=== PATIENT | female | born 1990 | race Caucasian/White ===

== ENCOUNTER 2016-12-03 13:01 | Emergency (ER) | payer MEDICAID ==
[~2016-12-03] VITALS: Ht 167.6 cm; Wt 68.6 kg
[~2016-12-03 13:01] MED LIST: PREN1TAB56 PO
[2016-12-03 14:17] LABS: ASPARTATE AMINO TRANSFERASE 12 U/L (15-37); BLOOD UREA NITROGEN 13 mg/dL (7-18)
[2016-12-03 15:19] LABS: HCG UR OBC PASS
[2016-12-03 15:23] VITALS: BP 118/63
== END 2016-12-03 16:00 | disposition home or self-care (01) ==
LOC: ED 15:54
DX: R11.2 Nausea with vomiting, unspecified (principal); R19.7 Diarrhea, unspecified; T36.1X1A Poisoning by cephalosporins and other beta-lactam antibiotics, accidental (unintentional), initial encounter; Y92.89 Other specified places as the place of occurrence of the external cause
CPT/HCPCS: 36415; 80053; 81001; 81025; 83690; 85025; 99284

== ENCOUNTER 2017-08-12 12:52 | Emergency (ER) | payer MEDICAID ==
[~2017-08-12] VITALS: Ht 167.6 cm; Wt 72.0 kg
[2017-08-12 12:53] VITALS: BP 110/70
[2017-08-12 13:42] LABS: BASOPHILS # (AUTO) 0.06 x10^3/uL (0-0.1); BASOPHILS % (AUTO) 1 % (0-1); EOSINOPHILS # (AUTO) 0.12 x10^3/uL (0-0.4); EOSINOPHILS % (AUTO) 2 % (1-7); LYMPHOCYTES # (AUTO) 2.41 x10^3/uL (1-3.4); LYMPHOCYTES % (AUTO) 33 % (22-44); MD NO; MEAN CORPUSCULAR HEMOGLOBIN 31.8 pg (27.0-34.8); MEAN CORPUSCULAR HGB CONC 33.7 g/dL (32.4-35.8); MEAN CORPUSCULAR VOLUME 94.4 fL (80-100); MEAN PLATELET VOLUME 7.6 fL (7.4-10.4); MONOCYTES # (AUTO) 0.46 x10^3/uL (0.2-0.8); MONOCYTES % (AUTO) 6 % (2-9); NEUTROPHILS # (AUTO) 4.28 x10^3/uL (1.8-6.8); NEUTROPHILS % (AUTO) 58 % (42-75); PLATELET COUNT 356 x10^3/uL (130-400); RED CELL DISTRIBUTION WIDTH 13.1 % (9.6-15.2)
[2017-08-12 13:49] LABS: MICROSCOPIC INDICATED
[2017-08-12 13:52] LABS: ALANINE AMINOTRANSFERASE 23 U/L (12-78); ALBUMIN 3.8 g/dL (3.4-5.0); ANION GAP 4 mmol/L (5-15); CALCIUM 8.6 mg/dL (8.5-10.1); CHLORIDE 113 mmol/L (98-107)
[2017-08-12 13:57] LABS: ALKALINE PHOSPHATASE 76 U/L (45-117); BILIRUBIN,TOTAL 0.5 mg/dL (0.2-1.0); TOTAL PROTEIN 6.9 g/dL (6.4-8.2)
[2017-08-12 13:58] LABS: CULTURE INDICATED? NO
== END 2017-08-12 14:55 | disposition home or self-care (01) ==
LOC: ED 14:51
DX: R30.0 Dysuria (principal); Z88.6 Allergy status to analgesic agent; Z88.8 Allergy status to other drugs, medicaments and biological substances
CPT/HCPCS: 36415; 76700; 80053; 81001; 83690; 84703; 85025; 87086; 99285

== ENCOUNTER 2019-02-16 18:55 | Emergency (ER) | payer MEDICAID ==
[~2019-02-16] VITALS: Ht 165.1 cm; Wt 74.2 kg
[~2019-02-16 18:55] MED LIST changes: +PENT100C2 PO
[2019-02-16 19:14] VITALS: BP 118/78
--- NOTE | 2019-02-16 19:46 | NUR ---
DC EDUCATION PROVIDED, PT DEMONSTRATES UNDERSTANDING. PT AMBULATED STEADILY TO DC WITH RN
== END 2019-02-16 19:48 | disposition home or self-care (01) ==
LOC: ED 19:15
DX: T24.202A Burn of second degree of unspecified site of left lower limb, except ankle and foot, initial encounter (principal); X17.XXXA Contact with hot engines, machinery and tools, initial encounter; Y93.89 Activity, other specified; Y92.488 Other paved roadways as the place of occurrence of the external cause; Y99.8 Other external cause status
CPT/HCPCS: 99283

== ENCOUNTER 2020-02-12 00:17 | Emergency (ER) | payer MEDICAID ==
[~2020-02-12] VITALS: Ht 167.6 cm; Wt 75.0 kg
--- NOTE | 2020-02-12 00:53 | NUR ---
PT TO ROOM FROM KIT, URINE SPECIMEN COLLECTED AND SENT, PT NOTES THAT SHE HAS HAD THIS PROBLEM OF FREQUENT URINATION FOR "YEARS" CURRENTLY DOES NOT TAKE MEDICATION OR SEE ANYONE FOR THIS PROBLEM.
[2020-02-12 01:04] LABS: HCG UR SG 1.009 (1.003-1.030); MICROSCOPIC NOT IND
[2020-02-12 01:33] LABS: BASOPHILS % (AUTO) 1 % (0-1); EOSINOPHILS # (AUTO) 0.28 x10^3/uL (0-0.4); EOSINOPHILS % (AUTO) 3 % (1-7); LYMPHOCYTES # (AUTO) 4.15 x10^3/uL (1-3.4); LYMPHOCYTES % (AUTO) 41 % (22-44); MD NO; MEAN CORPUSCULAR HEMOGLOBIN 31.6 pg (27.0-34.8); MEAN CORPUSCULAR HGB CONC 33.1 g/dL (32.4-35.8); MEAN CORPUSCULAR VOLUME 95.7 fL (80-100); MEAN PLATELET VOLUME 7.6 fL (7.4-10.4); MONOCYTES # (AUTO) 0.56 x10^3/uL (0.2-0.8); MONOCYTES % (AUTO) 6 % (2-9); NEUTROPHILS % (AUTO) 50 % (42-75); PLATELET COUNT 326 x10^3/uL (130-400); RED BLOOD COUNT 4.07 x10^6/uL (3.82-5.3); RED CELL DISTRIBUTION WIDTH 12.9 % (9.6-15.2)
[2020-02-12 01:45] LABS: ALANINE AMINOTRANSFERASE 18 U/L (12-78); ALBUMIN 3.7 g/dL (3.4-5.0); ANION GAP 5 mmol/L (5-15); CALCIUM 8.6 mg/dL (8.5-10.1); CHLORIDE 109 mmol/L (98-107); CREATININE 0.76 mg/dL (0.55-1.02)
[2020-02-12 01:47] LABS: ALKALINE PHOSPHATASE 72 U/L (45-117); BILIRUBIN,TOTAL 0.3 mg/dL (0.2-1.0); TOTAL PROTEIN 6.7 g/dL (6.4-8.2)
[2020-02-12 02:20] VITALS: BP 126/67
== END 2020-02-12 02:25 | disposition home or self-care (01) ==
LOC: ED 02:07
DX: G89.29 Other chronic pain (principal); R10.9 Unspecified abdominal pain; R35.0 Frequency of micturition
CPT/HCPCS: 36415; 80053; 81003; 81025; 85025; 99283

== ENCOUNTER 2020-10-06 19:52 | Emergency (ER) | payer BC, MEDICAID, OTHER ==
[~2020-10-06] VITALS: Ht 167.6 cm; Wt 74.5 kg
[2020-10-06] MEDS ORDERED: ALBUTEROL/IPRATROPIUM 2.5MG/0.5MG, 3 ML NPPB ONE (20:30)
[2020-10-06] MEDS ORDERED: ALBUTEROL/IPRATROPIUM 2.5MG/0.5MG, 3 ML ONE (20:34)
--- NOTE | 2020-10-06 20:58 | NUR ---
pt in bed with classroom monitor in place, satting well on room air, bed rails up bilaterally and call light within reach. pt complaining of increasing r rib pain, given ice pack and extra blankets. pt's md in a proceedure, pt requested to be patient while md is busy. pt verbalizes understanding and agreement.
[2020-10-06] MEDS ORDERED: KETOROLAC 30 MG/1 ML ONE (21:16)
[2020-10-06] MEDS ORDERED: KETOROLAC 60 MG/2 ML ONE (21:17)
[2020-10-06] MEDS ORDERED: KETOROLAC 30 MG/1 ML IM ONE (21:30)
[2020-10-06 22:07] VITALS: BP 103/69
== END 2020-10-06 22:36 | disposition home or self-care (01) ==
LOC: ED 21:13
DX: J45.41 Moderate persistent asthma with (acute) exacerbation (principal); R06.02 Shortness of breath; R06.00 Dyspnea, unspecified; Z88.8 Allergy status to other drugs, medicaments and biological substances
CPT/HCPCS: 71046; 93005; 94640; 96372; 99283; J1885; J7512

== ENCOUNTER 2021-01-07 19:57 | Emergency (ER) | payer OTHER ==
[~2021-01-07] VITALS: Ht 167.6 cm; Wt 76.5 kg
[2021-01-07 20:08] VITALS: BP 115/54
--- NOTE | 2021-01-07 20:12 | NUR ---
coat agent: pt given ice pack
[2021-01-07] MEDS ORDERED: DIAZEPAM 5 MG TABLET ONE (20:40)
[2021-01-07] MEDS ORDERED: LIDODERM 5% PATCH TD ONE (20:40)
[2021-01-07] MEDS ORDERED: KETOROLAC 30 MG/1 ML ONE (20:40)
--- NOTE | 2021-01-07 21:50 | NUR ---
PT A&OX4, C/O MAJOR PAIN TO LEFT FOOT ON THE DORSAL PORTION. MD TO EVAL, AND READ XRAY. PT TO RECEIVED LOWER LEG SPLINT PRIOR TO DC.
--- NOTE | 2021-01-07 22:31 | NUR ---
PT GIVEN CRUTCH INSTRUCTIONS AND RETURN DEMONSTRATED. PT AMBULATED WITH CRUTCHES TO DISCHARGE DESK WITHOUT INCIDENT. F/U AND D/C INSTRUCTIONS GIVEN TO PT AND SHE V/U.
== END 2021-01-07 22:33 | disposition home or self-care (01) ==
LOC: ED 22:27
DX: S92.352A Displaced fracture of fifth metatarsal bone, left foot, initial encounter for closed fracture (principal); J45.909 Unspecified asthma, uncomplicated; Z72.9 Problem related to lifestyle, unspecified; F17.200 Nicotine dependence, unspecified, uncomplicated; W01.0XXA Fall on same level from slipping, tripping and stumbling without subsequent striking against object, initial encounter
CPT/HCPCS: 29515; 99283